=== PATIENT | female | born 1950 | race American Indian/Alaskan Native ===

== ENCOUNTER 2021-12-20 13:58 | Outpatient (CLI) | payer MEDICAID ==
--- NOTE | 2021-12-20 16:11 | Mammography Report ---
BILATERAL DIGITAL DIAGNOSTIC MAMMOGRAM WITH CAD CONVENTIONAL, 12/20/2021 LEFT LIMITED BREAST ULTRASOUND CLINICAL INFORMATION / INDICATION: Patient presents for evaluation of an area of palpable concern in the left breast. N63 TECHNIQUE: Digital left mammographic imaging was performed. Limited ultrasound was performed. This ex amination was interpreted with the benefit of Computer-Aided Detection (CAD) analysis. COMPARISON: None available FINDINGS: Breast Density: There are scattered areas of fibroglandular density. MAMMOGRAPHIC FINDINGS: No dominant mass, suspicious calcifications, or architectural distortion in ei ther breast. There is no mammographic abnormality to account for the area of palpable concern in the 11:00 position of the left breast, therefore targeted left breast ultrasound was performed for furthe r evaluation. ULTRASOUND FINDINGS: Targeted ultrasound evaluation was performed of the area of interest. Targeted ultrasound of the area palpable concern in the left breast 11:00 position located 9 cm from the nipp le demonstrates an oval circumscribed isoechoic mass measuring up to 2.4 x 0.8 x 2.5 cm. The mass is parallel. No internal vascularity is demonstrated. IMPRESSION: 1. There is a benign-appearing oval circumscribed isoechoic mass corresponding with the site of palpa ble concern in the left breast. This most likely reflects a lipoma. Recommend left breast ultrasound 6 months to ensure stability. Follow up recommendation: Short term follow up in 6 months. BI-RADS Category 3: PROBABLY BENIGN. Followup in 6 months. A "normal" or negative report should not discourage follow up or biopsy of a clinically significant f inding. A written summary of these findings will be mailed to the patient. The patient will be entered into a mammography reporting system which will generate a reminder letter for the patient's next appointmen t at the appropriate interval. According to the [employer], yearly mammograms are recommended starting at age 40 and continuing as long as a woman is in good health. Breast MRI is recommended for women with an sidney roximately 20-25% or greater lifetime risk of breast cancer, including women with a strong family his tory of breast or ovarian cancer and women who have been treated for Hodgkin's disease. Signer Name: Zoey Cisneros MD Signed: 12/20/2021 4:06 PM Workstation Name: [id number]
== END 2021-12-20 13:59 | disposition home or self-care (01) ==
LOC: SPVWC 13:58
PROVIDERS: ATTEND Internal Medicine
DX: R92.8 Other abnormal and inconclusive findings on diagnostic imaging of breast (principal)
CPT/HCPCS: 77066